=== PATIENT | male | born 1995 | race Caucasian/White ===

== ENCOUNTER 2022-04-23 11:24 | Emergency (ER) | payer SELFPAY ==
[2022-04-23 12:05] LABS: Bacteria/HPF None Seen HPF (None Seen); Bilirubin Negative (Negative); Blood, Urine Negative (Negative); Clarity Clear (Clear); Glucose, Urine (Dipstick) Normal (Negative); Ketone, Urine Negative (Negative); Leukocyte 25 Leu/uL (Negative); Nitrite Negative (Negative); Protein, Urine (Dipstick) Negative (Neg-Trace); RBC/HPF 0-3 HPF (0-3); Specific Gravity, Urine 1.026 (1.002-1.036); Squamous Epithelial None Seen HPF (0-3); Urobilinogen Normal mg/dL (Less than 2); WBC/HPF 0-3 HPF (0-3); pH, Urine 6.5 (5.0-9.0)
[2022-04-23] MEDS ORDERED: cefTRIAXone\\ROCEPHIN 500 MG VIAL ONE (12:29)
[2022-04-23] MEDS ORDERED: Lidocaine 1% PF 5 ML VIAL ONE (12:29)
[2022-04-24 21:48] LABS: Chlam.trachomatis by PCR,Urine DETECTED (NotDetected); GC N.gonorrhoeae PCR,UrineVOID Not Detected (NotDetected)
== END 2022-04-23 13:00 | disposition home or self-care (01) ==
LOC: ERS 11:24
DX: R30.0 Dysuria (principal); F17.210 Nicotine dependence, cigarettes, uncomplicated
CPT/HCPCS: 81003; 81015; 87491; 87591; 96372; 99283; J0696

== ENCOUNTER 2022-12-14 18:08 | Emergency (ER) | payer SELFPAY | END 2022-12-14 19:58 | disposition home or self-care (01) | LOC: ERS 18:08 | DX: L50.9 Urticaria, unspecified (principal); K62.5 Hemorrhage of anus and rectum; F17.210 Nicotine dependence, cigarettes, uncomplicated | CPT/HCPCS: 99283 ==